=== PATIENT | male | born 1990 | race Two or more races ===

== ENCOUNTER 2024-11-16 10:55 | Outpatient (AMB) | payer BC, SELFPAY ==
--- OUTSIDE RECORDS SUMMARY | 2012-07-03 04:15 | XMS_ITS | Continuity of Care Document ---
Author Organization [facility] Address [address] [place] [phone] Phone Care Team Providers Care Wildlife Veterinarian Name Role Phone Nursing CHC, Services Unavailable [...] Diagnoses Date Provider Providers Copied on Encounter [facility] , [address] [place] [address], [id number], [place] tel:[phone] [facility] PPD reading (chief complaint) No Information 3-201 3 Nursing Services. [address] [place] [address], [address]. tel:[phone] OFFICE/OUTPAT IENT VISIT, EST [facility] , [address] [place] [address], [id number], [place] tel:[phone] [facility] PPD test (chief complaint) PPD screening test 0-201 3 No Information [facility] , [address] [place] [address], [id number], [place] tel:[phone] [facility] PPD reading (chief complaint) No Information 9-201 2 Nursing Services. [address] [place] [address], [address]. tel:[phone] [facility] , [address] [facility], [place], [place], [id number], [place] tel:[phone] [facility] PPD test (chief complaint) Tuberculosis screening 2 No Information Family History Family Member Type Diagnosis Age At Onset No Information Payers Payer name Insurance type Covered democrat ID Authoriza tion(s) No Information Social History [...]
--- NOTE | 2024-11-16 10:58 | A.OFFPC_ITS ---
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 Senior Report Developer Required: No Accompanied by: Self / Same As Patient Allergies No Known Allergies Allergy (Verified 11/16/24 10:59) Tobacco use date assessed: 11/16/24 Dental Screening Dental Screen Date: 11/16/24 Did you have a dental visit in the last 12 months?: Yes Did you have a dental problem in the last 6 months where you did not have access to dental care?: No Was dental information given to patient?: Patient has dentist HPI HPI Comments History of Present Illness Details History of Present Illness The patient is a 34-year-old male presenting with musculoskeletal pain. Musculoskeletal pain: - The pain started approximately one wee k ago and is described as sharp and stabbing, rated 8/10 in severity. - The patient works in [employer], which may contribute to the musculoskeletal nature of the pain. - The pain is not reproducible upon palp ation and has decreased in intensity recently. Elevated blood pressure: - Blood pressure was noted to be elevate d during the visit, likely due to nervousness. Substance use screening: - Screening for substance use was discus sed, including tests for hepatitis B, hepatitis C, HIV, chlamydia, gonorrhea, and syphilis. Health Maintenance - Screening for hepatitis B, hepatitis C , HIV, chlamydia, gonorrhea, and syphilis was discussed. Review of Systems - Musculoskeletal: Reports sharp, stabbi ng pain in the rib area for one week. - Cardiovascular: Denies chest pain, ort hopnea, or syncope. - Gastrointestinal: Denies diarrhea, con stipation, heartburn, or blood in stool. 10-point ROS reviewed and negative excep t as noted in HPI Current Substance Use - Cannabis: Reports smoking cannabis aye ly since age 16, approximately 3-5 times per day. Substance Use History - Cannabis: Long-term use since age 16, currently smoking 3-5 times daily. 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 - Family: In a long-term relationship, s oon to be , with five children. Physical Exam General: No apparent distress. Alert and oriented x 3. Head:Normocephalic, atraumatic Eyes: Pupils equal, round, and reactive to light.Extraocular movements intact Throat: 0ropharynx clear. Mucus membranes moist Neck: Supple. No lymphadenopathy. left anterior descending artery distention. No jugular vein distention. No bruit. Cardiovascular: Regular rate and rhythm. Normal S1 and S2. No murmurs.murmurs, rubs, or gallops Lungs: Clear to auscultation bilaterally. Breath sounds equal bilaterally. No rales, ronchi, or wheezes. Abdomen: Non-tender. Non-distended. Bowel sounds auscultated. Lower left quadrant pain noted. Ultrasound abdomen ordered.hepatosplenomegaly. No mass/rebound/guarding Extremities: No cyanosis, clubbing, or edema. clubbing, cyanosis, and edema. 2+ pulses Neuro: Central nerves II-XII grossly intact. Motor/sensory intact. Reflexes 2+. Gait normal. Skin: Warm, dry, and intact. No rash. Discussion Notes During the visit, I discussed the patient's musculoskeletal pain and the potential musculoskeletal nature of the pain due to his occupation. I recommended an abdominal ultrasound to further investigate the pain and prescribed Motrin 600 mg for pain management. We also discussed the importance of baseline labs, including a complete blood count, comprehensive metabolic panel, and lipid panel. I advised the patient to follow up for lab results and further evaluation. Plan 1. Musculoskeletal Pain - Plan includes ordering an abdominal ul trasound to investigate the pain and prescribing Motrin 600 mg for pain relief. 2. Elevated blood-pressure reading, with out diagnosis of hypertension R03.0 - Blood pressure was noted to be elevate d, likely due to nervousness. No spec [facility] treatment was initiated during this visit. 3. Encounter for screening for other dis order Z13.89 - Screening for hepatitis B, hepatitis C , HIV, chlamydia, gonorrhea, and syphilis was discussed and planned. 4. abdominal pain ultrasound abdomen Ibuprofen 600 for pain Restrain from doing heavy lifting Patient Instructions - Take Motrin 600 mg every 8 hours with food to manage pain. - Follow up for lab results and further evaluation. - Attend scheduled screenings for hepati tis B, hepatitis C, HIV, chlamydia, gonorrhea, and syphilis. [facility] Family History (Updated 11/16/24 @ 11:05 by Martinez James MA) Father No problems noted. Mother No problems noted. Social History (Updated 11/16/24 @ 11:06 by Martinez James MA) Housing: House Alcohol intake: current Alcohol intake frequency: does not drink Patient Tobacco Use Status: Never used Tobacco Substance Use Type: Marijuana service: No Current occupational status: employed Cognitive needs: No Hearing needs: No Vision needs: No Questionnaire PHQ-9 Over the last 2 weeks, how often have you been bothered by any of the following problems? 1. Little interest or pleasure in doing things: not at all 2. Feeling down, depressed, or hopeless: not at all 3. Trouble falling or staying asleep, or sleeping too much: not at all 4. Feeling tired or having little energy: not at all 5. Poor appetite or overeating: not at all 6. Feeling bad about yourself - or that you are a failure or have let yourself or your family down: not at all 7. Trouble concentrating on things, such as reading the newspaper or watching television: not at all 8. Moving or speaking so slowly that other people could have noticed. Or the opposite - being so fidgety or restless that you have been moving around a lot more than usual: not at all 9. Thoughts that you would be better off or of hurting yourself in some way: not at all Total score: 0 Source: Developed by Drs. Juan Arevalo, Yeni Laws, Micah Mendoza and colleagues, with an educational richard from [employer]. Thrive Questionnaire I am a: Patient What is your living situation today?: I have a steady place to live Within the past 12 months, did the food you bought not last and you didn't have the money to get more?: Often true Within the past 12 months, did you worry whether your food would run out before you got money to buy more?: I choose not to answer this question Do you have trouble paying for medicines?: No Do you have trouble getting transportation to medical appointments?: No Do you have trouble paying your heating and electricity bill?: No Do you have trouble taking care of your child, family member or friend?: No Are you currently unemployed and looking for a job?: No Are you interested in more education?: No Please select the resources that you would like help with: None Currently or been in a relationship where the following occur: I choose not to answer THRIVE Score: 1 AUDIT C Alcohol Use Questionnaire (AUDIT-C) 1. How often do you have a drink containing alcohol?: 2-4 times a month 2. How many drinks containing alcohol do you have on a typical day when you are drinking?: 3 or 4 3. How often do you have six or more drinks on one occasion?: Less than monthly Total Score: 4 MAKAYLA-7 AMB Questionnaire MAKAYLA-7 Feeling nervous, anxious, or on edge: 0 = Not at all Not being able to stop or control worryin = Not at all Worrying too much about different things: 0 = Not at all Trouble relaxin = Not at all Being so restless that it is hard to sit still: 0 = Not at all Becoming easily annoyed or irritable: 0 = Not at all Feeling afraid as if something awful might happen: 0 = Not at all Total MAKAYLA-7 score (0-4 normal; 5-9 mild; 10-14 moderate; 15-21 severe): 0 Source: Developed by Drs. Juan Arevalo, Yeni Laws, Micah Mendoza and colleagues, with an educational richard from [employer]. Physical exam (Primary Care) Vital Signs: Last Vital Signs Temp 98.7 F 11/16/24 11:06 Pulse 105 H 11/16/24 11:06 Resp 16 11/16/24 11:06 BP 140/70 H 11/16/24 11:06 Pulse Ox 100 11/16/24 11:06 Oxygen Delivery Method Room Air 11/16/24 11:06 BMI result Body Mass Index 23.1 Tobacco/Smoking Status: Tobacco use Status Tobacco use date assessed 11/16/24 11/16/24 11:02 Patient Tobacco Use Status Never used Tobacco 11/16/24 11:06 PHQ-9: PHQ-9 Score PHQ-9: Total score 0 11/16/24 11:02 Currently or been in a relationship where the following occur: I choose not to answer Coding Level of Care Code New Pt Level 3 (41396) Diagnoses Establishing care with new doctor, encounter for Z76.89 Encounter for screening, unspecified Z13.9 Routine lab draw Z01.89 Counseling, unspecified Z71.9 Elevated blood pressure reading R03.0 Tachycardia R00.0 Screening for diabetes mellitus Z13.1 Screening for lipoid disorders Z13.220 Screening for depression Z13.31 Screening for HIV (human immunodeficiency virus) Z11.4 Left lower quadrant abdominal pain R10.32 Abdominal location: left lower quadrant Assessment & Plan Assessment & Plan (1) Establishing care with new doctor, encounter for: Code(s): Z76.89 - Persons encountering health services in other specified circumstances (2) Encounter for screening, unspecified: Code(s): Z13.9 - Encounter for screening, unspecified (3) Routine lab draw: Code(s): Z01.89 - Encounter for other specified special examinations (4) Counseling, unspecified: Code(s): Z71.9 - Counseling, unspecified (5) Elevated blood pressure reading: Code(s): R03.0 - Elevated blood-pressure reading, without diagnosis of hypertension (6) Tachycardia: Code(s): R00.0 - Tachycardia, unspecified (7) Screening for diabetes mellitus: Code(s): Z13.1 - Encounter for screening for diabetes mellitus (8) Screening for lipoid disorders: Code(s): Z13.220 - Encounter for screening for lipoid disorders (9) Screening for depression: Code(s): Z13.31 - Encounter for screening for depression (10) Screening for HIV (human immunodeficiency virus): Code(s): Z11.4 - Encounter for screening for human immunodeficiency virus [HIV] (11) Abdominal pain: Code(s): R10.9 - Unspecified abdominal pain Qualifiers: Abdominal location: left lower quadrant Qualified Code(s): R10.32 - Left lower quadrant pain Plan Orders: Orders Lipid Panel Today Z13.9 - Encounter for screening, unspecified, Z76.89 - Persons encountering health services in other specified circumstances Magnesium Today Z13.9 - Encounter for screening, unspecified, Z76.89 - Persons encountering health services in other specified circumstances TSH reflex Free T4 Today Z13.9 - Encounter for screening, unspecified, Z76.89 - Persons encountering health services in other specified circumstances UA CC w/rflx Micro + Cult Today Z13.9 - Encounter for screening, unspecified, Z76.89 - Persons encountering health services in other specified circumstances Vitamin D 1,25 dihydroxy Today Z13.9 - Encounter for screening, unspecified, Z76.89 - Persons encountering health services in other specified circumstances Chlamydia Species Ab Panel Today Z13.9 - Encounter for screening, unspecified, Z76.89 - Persons encountering health services in other specified circumstances CT NG by PCR Urine Today Z13.9 - Encounter for screening, unspecified, Z76.89 - Persons encountering health services in other specified circumstances US abdomen complete Today R10.9 - Unspecified abdominal pain Complete Blood Count Auto Diff Today Z13.9 - Encounter for screening, unspecified, Z76.89 - Persons encountering health services in other specified circumstances Comprehensive Met. Panel Today Z13.9 - Encounter for screening, unspecified, Z76.89 - Persons encountering health services in other specified circumstances Hemoglobin A1c Today Z13.9 - Encounter for screening, unspecified, Z76.89 - Persons encountering health services in other specified circumstances Hepatitis B Surface Antibody Today Z13.9 - Encounter for screening, unspecified, Z76.89 - Persons encountering health services in other specified circumstances Hepatitis B Surface Antigen Today Z13.9 - Encounter for screening, unspecified, Z76.89 - Persons encountering health services in other specified circumstances Hepatitis C Antibody Today Z13.9 - Encounter for screening, unspecified, Z76.89 - Persons encountering health services in other specified circumstances HIV Ab/Ag Today Z13.9 - Encounter for screening, unspecified, Z76.89 - Persons encountering health services in other specified circumstances Syphilis Screen Today Z13.9 - Encounter for screening, unspecified, Z76.89 - Persons encountering health services in other specified circumstances Medications: New ibuprofen 600 mg PO Q8H PRN 30 tabs 0RF pain
[2024-11-16 11:06] VITALS: BP 140/70; PULSE 105; RESP 16; TEMP 37.1; O2SAT 100; BMI 23.1
--- OUTSIDE RECORDS SUMMARY | 2024-11-16 14:41 | XMS_ITS | Clinical Summary ---
Author Organization [facility] Address [address] [place] [id number] Phone Care Team Providers Care Special Agent Fbi Name Role Phone Ira Bowens NP Primary Care Provider [phone] Allergies No known active allergies Medications diclofenac sodium (VOLTAREN) 50 MG EC tablet Take 50 mg by mouth. 07/12/2021 Active Active Problems No known active problems Social History Tobacco Use Types Packs/Day Years Used Date Smoking Tobacco: Never Assessed Education Answer Date Recorded Are you interested in more education? Not on riaz e 06/29/2022 Are you concerned about learning? Not on file 06/29/2022 No 06/29/2022 No 06/29/2022 Digital Access Answer Date Recorded No 07/28/2022 No 07/28/2022 Reliable internet access at home? Not on file 07/28/2022 Device with a working camera? Not on file Sex and Gender Information Value Date Recorded Sex Assigned at Not on file Legal Sex Male 9:07 AM EDT Gender Identity Not on file Sexual Orientation Not on file Last Filed Vital Signs Vital Sign Reading Time Taken Comments Blood Pressure - - Pulse - - Temperature - - Respiratory Rate - - Oxygen Saturation - - Inhaled Oxygen Concentration - - Weight 74.8 kg (165 lb) 01/02/2022 8:17 AM EDT Height 182.9 cm (6') 01/02/2022 8:17 AM EDT Body Mass Index 22.38 01/02/2022 8:17 AM EDT Plan of Treatment Health Maintenance Due Date Last Done Comments Adult Td,Tdap Booster 1988 LIPID PANEL 1988 DEPRESSION SCREENING 2000 SMOKING Hx and SMOKELESS TOB ACCO SCREENING 2001 HEPATITIS C SCREENING 2006 HIV ONE-TIME SCREENING (18-6 5 YEARS) 2006 INFLUENZA VACCINE (#1) 2024 COVID-19 VACCINE (1 - 2023-2 5 season) 2024 HEPATITIS A VACCINES Aged Out No long er eligible based on patient's age to complete this topic HIB VACCINES Aged Out No longer eligi ble based on patient's age to complete this topic MENINGOCOCCAL VACCINES (ACWY) Aged Out No longer eligible based on patient's age to complete this topic MENINGOCOCCAL VACCINES (B) Aged Out N o longer eligible based on patient's age to complete this topic PNEUMOCOCCAL VACCINES (0-49 years) Aged Out No longer eligible based on patient's age to complete this topic Medical Devices Not on file Insurance OUT [facility] PPO PPO BLUE CROSS OUT OF STATE PPO BLUE CROSS OUT OF STATE PPO BLUE CROSS OUT OF STATE PPO BLUE CROSS OUT OF STATE PPO BLUE CROSS OUT OF STATE PPO BLUE CROSS OUT OF STATE PPO BLUE CROSS OUT OF STATE PPO Care Teams Special Agent Fbi Relationship Specialty Start Date End Date Ira Bowens NP [address] [address] PCP - General Family Medicine 10/31/21 Additional Source Comments The information contained in this document represents components of the legal health record. It is not the complete legal health record.[facility]
== END 2024-11-16 11:48 | disposition home or self-care (01) ==
LOC: HO.HMCFMS 10:56
PROVIDERS: Visit Provider Student in an Organized Health Care Education/Training Program
DX: R03.0 Elevated blood-pressure reading, without diagnosis of hypertension (principal); R00.0 Tachycardia, unspecified; R10.32 Left lower quadrant pain

== ENCOUNTER 2024-11-17 09:17 | Outpatient (REF) | payer BC, SELFPAY ==
--- OUTSIDE RECORDS SUMMARY | 2012-07-03 04:15 | XMS_ITS | Continuity of Care Document ---
Author Organization [facility] Address [address] [place] [id number] Phone Care Team Providers Care Well Servicing Rig Operator Name Role Phone Nursing CHC, Services Unavailable Unavailabl e Allergies, Adverse Reactions, Alerts Substance Reaction Status Criticality No Known allergies Procedures Procedure Date PPD Reading OFFICE/OUTPATIENT VISIT, EST TB INTRADERMAL TEST TB INTRADERMAL TEST PPD Reading TB INTRADERMAL TEST TB INTRADERMAL TEST Advance Directives Directive Yes / No Effective Date File Name No Information Encounters Encounter Description Practice Location Reason(s) For Visit Diagnoses Date Provider Providers Copied on Encounter [facility] , [address] [place] [address], [id number], [place] tel:[phone] [facility] PPD reading (chief complaint) No Information 3-201 3 Nursing Services. [address] [place] [address], [address]. tel:[phone] OFFICE/OUTPAT IENT VISIT, EST [facility] , [address] [place] [address], [id number], [place] tel:[phone] [facility] PPD test (chief complaint) PPD screening test 0-201 3 No Information [facility] , [address] [place] [address], [id number], [place] tel:[phone] [facility] PPD reading (chief complaint) No Information 9-201 2 Nursing Services. [address] [place] [address], [address]. tel:[phone] [facility] , [address] [facility], [place], [place], [id number], [place] tel:[phone] [facility] PPD test (chief complaint) Tuberculosis screening 2 No Information Family History Family Member Type Diagnosis Age At Onset No Information Payers Payer name Insurance type Covered republican ID Authoriza tion(s) No Information Social History Type Description Quantity Date Captured Comments Sex Male Smoking Status No Information Chief Complaint And Reason For Visit From encounter dated '07/03/2012 08:15'. PPD reading (chief complaint) Reason For Referral Reason For Referral No Information History Of Present Illness Encounter Date Complaint History Of Prese nt Illness No Information Functional Status Date Functional Assessmen t No Information Instructions Date Instruction Additional Infor mation No Information Assessments Type Assessment Date No Information Patient Care Teams Name Effective Dates (start - stop) Status Members No Information
--- NOTE | ~2024-11-17 | US_ITS ---
EXAMINATION: US ABDOMEN COMPLETE CLINICAL INFORMATION: R10.9. Unspecified abdominal pain.. COMPARISON: None available. TECHNIQUE: Real-time ultrasound of the abdomen using grayscale technique. FINDINGS: PANCREAS: No peripancreatic fluid collections. No gross main pancreatic ductal dilatation. ABDOMINAL AORTA: The proximal, mid, and distal segments are normal in caliber. INFERIOR VENA CAVA: Visualized portions are normal. LIVER: Liver measures 17 cm. Subtle nodular surface. Normal echotexture. No solid or cystic lesion detected. Main portal vein is patent with normal hepatopedal flow direction. No intrahepatic biliary ductal dilatation. GALLBLADDER: Fluid-filled nondistended. No pericholecystic fluid collection or gallbladder wall thickening. COMMON BILE DUCT: 5 mm. RIGHT KIDNEY: 11 cm. Normal echotexture. Normal renal cortical thickness. No hydronephrosis. No gross solid or cystic lesion. . LEFT KIDNEY: 12 cm. Normal echotexture. Normal renal cortical thickness. No hydronephrosis. No gross solid or cystic lesion. SPLEEN: 8 cm. No focal lesion.. FREE FLUID: None. US/US abdomen complete IMPRESSION: No cholelithiasis or choledocholithiasis. Hepatomegaly, mild. No hydronephrosis. No ascites. Normal spleen.. Electronically signed by: Suresh Hackett MD 11/17/2024 10:26 AM EDT
--- OUTSIDE RECORDS SUMMARY | 2024-11-17 10:56 | XMS_ITS | Clinical Summary ---
Author Organization [facility] Address [email or web address] [place] [id number] Phone Care Team Providers Care Vocational Examiner Name Role Phone Ira Bowens NP Primary Care Provider [phone] Allergies No known active allergies Medications diclofenac [...] Medical Devices Not on file Insurance OUT [facility] PPO PPO BLUE CROSS OUT OF STATE PPO BLUE CROSS OUT OF STATE PPO BLUE CROSS OUT OF STATE PPO BLUE CROSS OUT OF STATE PPO BLUE CROSS OUT OF STATE PPO BLUE CROSS OUT OF STATE PPO BLUE CROSS OUT OF STATE PPO Care Teams Vocational Examiner Relationship Specialty Start Date End Date Ira Bowens NP [address] [address] PCP - General Family Medicine 10/31/21 Additional Source Comments The information contained in this document represents components of the legal health record. It is not the complete legal health record.[facility]
== END 2024-11-17 09:18 | disposition home or self-care (01) ==
LOC: HO.US 09:17
PROVIDERS: PCP Student in an Organized Health Care Education/Training Program; Visit Provider Student in an Organized Health Care Education/Training Program
DX: R10.9 Unspecified abdominal pain (principal)
CPT/HCPCS: 76700

== ENCOUNTER → 2024-11-17 09:25 | Outpatient (BNV) | payer BC, SELFPAY | PROVIDERS: PCP Student in an Organized Health Care Education/Training Program; Visit Provider Radiology Diagnostic Radiology | DX: R16.0 Hepatomegaly, not elsewhere classified (principal) | CPT/HCPCS: 76700 ==

== ENCOUNTER 2024-11-25 08:42 | Outpatient (REF) | payer BC, SELFPAY ==
--- OUTSIDE RECORDS SUMMARY | 2024-11-25 10:30 | XMS_ITS | Clinical Summary ---
Author Organization [facility] Address [address] [place] [address] Care Team Providers Care Mason Apprentice Name Role Phone Ira Bowens NP Primary Care Provider Unavailab le Allergies No known active allergies Medications Medication Sig Dispensed Refills Start Date End Date Status diclofenac (VOLTAREN) 50 MG EC tablet Take 1 Tablet by mouth 2 times daily for 30 days. 60 Tablet 1 07/12/2021 Active Active Problems No known active problems Social History Tobacco Use Types Packs/Day Years Used Date Smoking Tobacco: Never Smokeless Tobacco: Never Alcohol Use Standard Drinks/Week Comments Yes 0 (1 standard drink = 0.6 oz pur e alcohol) Sex Assigned at Date Recorded Not on file Job Start Date Occupation Industry Not on file Not on file Not on file Last Filed Vital Signs Vital Sign Reading Time Taken Comments Blood Pressure 90/60 07/12/2021 10:54 AM EDT Pulse 66 07/12/2021 10:54 AM EDT Temperature - - Respiratory Rate 12 07/12/2021 10:54 AM EDT Oxygen Saturation - - Inhaled Oxygen Concentration - - Weight 76.7 kg (169 lb) 07/12/2021 10:54 AM EDT Height 182.9 cm (6') 07/12/2021 10:54 AM EDT Body Mass Index 22.92 07/12/2021 10:54 AM EDT Plan of Treatment Health Maintenance Due Date Last Done Comments Covid-19 Vaccine (#1) 02/18/1989 BASELINE HEALTH EXAM 18-39 08/20/2007 DTAP/TDAP/TD (1 - Tdap) 08/20/2007 CHOLESTEROL SCREENING 2008 INFLUENZA (#1) 2024 PNEUMOCOCCAL VACCINE FOR HIGH RISK PATIENTS (#1) 08/19 Care Teams Mason Apprentice Relationship Specialty Start Date End Date Ira Bowens NP PCP - General Nurse Practioner Adult Health 06/27/21
[2024-11-25 13:16] LABS: MANUAL DIFF FLAG NO
[2024-11-25 13:17] LABS: Hematocrit 40.7 % (42.0-52.0); Hemoglobin 14.3 g/dl (14.0-18.0); Imm Gran Abs Auto 0.01 X10*3/uL (0.00-0.03); Imm Gran Pct Auto 0.2 % (0.0-0.4); Lymphocytes Absolute Auto 1.5 X10*3/uL (1.2-4.9); Mean Corpuscular HGB Conc 35.1 g/dl (31.0-36.0); Mean Corpuscular Hemoglobin 33.3 pg (27.0-33.0); Mean Corpuscular Volume 94.7 fL (80.0-98.0); NRBC Abs Auto 0.000 X10*3/uL (0.0-0.012); NRBC Pct Auto 0.0 /100WBC (0.0-0.2); Platelet Count 266 X10*3/uL (160-400); Red Blood Count 4.30 X10*6/uL (4.60-5.80); White Blood Count 6.5 X10*3/uL (4.8-10.8)
[2024-11-25 13:25] LABS: Appearance Urine Clear; Glucose Urine UA Negative (Negative); PH >= 9.0 (5.0-9.0); Specific Gravity - Urine 1.015 (1.005-1.025); UMIC TRIGGER UACC YES
[2024-11-25 13:34] LABS: Total Hemoglobin (HGBA1C) 3649.0995 umol/L
[2024-11-25 14:14] LABS: Alanine Aminotransferase 23 U/L (0-40); Albumin Level 5.0 g/dL (3.5-5.0); Alkaline Phosphatase 79 U/L (39-117); Anion Gap 12 (12-20); Aspartate Amino Transferase 29 U/L (5-37); Blood Urea Nitrogen 11 mg/dL (9-16); Calcium 9.6 mg/dL (8.4-10.2); Carbon Dioxide 28 mmol/L (22-29); Chloride 104 mmol/L (96-108); Cholesterol 281 mg/dL (<200); Estimated Glomerular Filt Rate > 60; HDL Cholesterol 43 mg/dL (>40); Magnesium 2.0 mg/dL (1.6-2.6); Potassium 4.3 mmol/L (3.3-5.1); Sodium 140 mmol/L (135-145); Total Protein 8.1 g/dL (6.5-8.0); Triglycerides 164 mg/dL (<150)
[2024-11-25 15:07] LABS: CT PCR Urine NOT DETECTED (Not Detect.); NG PCR Urine NOT DETECTED (Not Detect.)
[2024-11-26 08:12] LABS: Syphilis Screen Nonreactive (Nonreactive)
[2024-11-26 09:04] LABS: HBS Num1 > 1000.00 mIU/mL (0-7.99); HBsAGNum1 0.31 S/CO (0.00-0.99); HIV Num 1 0.05 S/CO (0.00-0.99); Hepatitis B Surface Antigen Negative (Negative); ~HepC Num1 0.21 S/CO (0.00-0.79); ~Hepatitis B Surface Antibody REACTIVE (Nonreactive); ~Hepatitis C Antibody Nonreactive (Nonreactive)
[2024-11-29 19:59] LABS: VITAMIN D (1,25 OH) D3 51 pg/mL; Vit D (1,25-Dihydroxy) Total 51 pg/mL (18-72); Vitamin D (1,25 OH) D2 <8 pg/mL
[2024-11-30 22:59] LABS: Chlamydia Trachomatis IgA <1:16 titer (<1:16)
== END 2024-11-25 08:43 | disposition home or self-care (01) ==
LOC: HO.HKASLDS 08:42
PROVIDERS: Visit Provider Student in an Organized Health Care Education/Training Program
DX: Z71.2 Person consulting for explanation of examination or test findings (principal); R16.0 Hepatomegaly, not elsewhere classified; Z76.89 Persons encountering health services in other specified circumstances; Z13.9 Encounter for screening, unspecified
CPT/HCPCS: 80053; 80061; 81001; 82652; 83036; 83735; 84443; 85025; 86631; 86632; 86706; 86780; 86803; 87340; 87389; 87491; 87591

== ENCOUNTER 2024-11-25 08:42 | Outpatient (AMB) | payer BC, SELFPAY ==
--- OUTSIDE RECORDS SUMMARY | 2012-07-03 04:15 | XMS_ITS | Continuity of Care Document ---
Author Organization [facility] Address [address] [place] [phone] Phone Care Team Providers Care Sales Effectiveness Manager Name Role Phone Nursing CHC, Services Unavailable [...] Diagnoses Date Provider Providers Copied on Encounter [facility] , [address] [place] [address], [id number], [place] tel:[phone] [facility] PPD reading (chief complaint) No Information 3-201 3 Nursing Services. [address] [place] [address], [address]. tel:[phone] OFFICE/OUTPAT IENT VISIT, EST [facility] , [address] [place] [address], [id number], [place] tel:[phone] [facility] PPD test (chief complaint) PPD screening test 0-201 3 No Information [facility] , [address] [place] [address], [id number], [place] tel:[phone] [facility] PPD reading (chief complaint) No Information 9-201 2 Nursing Services. [address] [place] [address], [address]. tel:[phone] [facility] , [address] [facility], [place], [place], [id number], [place] tel:[phone] [facility] PPD test (chief complaint) Tuberculosis screening 2 No Information Family History Family Member Type Diagnosis Age At Onset No Information Payers Payer name Insurance type Covered alliance party ID Authoriza tion(s) No Information Social History [...]
--- NOTE | 2024-11-25 08:57 | A.OFFPC_ITS ---
Vital Signs 11/25/24 09:00 Height 6 ft 0.44 in Weight 173 lb 8 oz BMI 23.2 BP 123/67 Blood Pressure Location Rt brachial Position Sitting Respiration 16 Pulse 65 Pulse Source Pulse Oximeter Temp 98.4 F Temp Source Oral Pulse Oximetry (%) 99 Oxygen Delivery Method Room Air Intake Visit Reasons: follow up labs and ultrasound Bundle Breaker Required: No Accompanied by: Self / Same As Patient Allergies No Known Allergies Allergy (Verified 11/25/24 08:58) Tobacco use date assessed: 11/16/24 Dental Screening Dental Screen Date: 11/16/24 Did you have a dental visit in the last 12 months?: Yes Did you have a dental problem in the last 6 months where you did not have access to dental care?: No Was dental information given to patient?: Patient has dentist HPI HPI Comments History of Present Illness Details History of Present Illness The patient is a 34-year-old male presenting for a follow-up visit and evaluation of ultrasound results. Mild Hepatomegaly: - The patient underwent an ultrasound wh ich revealed mild hepatomegaly. - The patient reports experiencing inter mittent left-sided abdominal pain, which has not improved. - The pain is not associated with meals and occurs sporadically. - The ultrasound findings were otherwise normal, and further evaluation with laboratory tests is planned to assess liver function and other potential causes. Review of Systems - Gastrointestinal: Reports intermittent left-sided abdominal pain. Denies association with meals. 10-point ROS reviewed and negative excep t as noted in HPI Past Medical History Health Maintenance Physical Exam General: Well-appearing, in no acute distress. Vital signs: Within normal limits. HEENT: Normocephalic, atraumatic. PERRLA, EOMI. Conjunctiva clear, sclera anicteric. Oropharynx clear, mucous membranes moist. TMs intact bilaterally. Neck: Supple, no lymphadenopathy, no thyromegaly, no JVD or carotid bruits. Cardiovascular: RRR, normal S1/S2, no murmurs, rubs, or gallops. Peripheral pulses 2+ and symmetric. No edema. Respiratory: Lungs clear to auscultation bilaterally, no wheezes, rales, or rhonchi. Normal effort. Abdomen: Soft, non-tender, non-distended. Normoactive bowel sounds. No hepatosplenomegaly, no masses. Mild hepatomegaly noted. MSK: Full range of motion, no joint swelling or deformity. Normal gait. Skin: Warm, dry, intact. No rashes, lesions, or pallor. Neuro: Alert and oriented x3. Cranial nerves II-XII intact. Strength 5/5 throughout. Sensation intact. Reflexes 2+ symmetric. Normal coordination and gait. Psych: Appropriate mood and affect. Normal judgment and insight. Plan 1. Mild Hepatomegaly - Plan to obtain laboratory tests to juan miguel luate liver function and identify potential causes of hepatomegaly. - Consideration for referral to a specia list if laboratory results indicate further investigation is needed. Discussion Notes I discussed with the patient that the ultrasound showed mild hepatomegaly, which requires further evaluation with laboratory tests to assess liver function. I explained that depending on the lab results, a referral to a specialist might be necessary for further investigation. Patient was informed and verbally consented to the use of an ambient scribe for clinic note documentation during this visit. Patient Instructions - Schedule and complete the recommended blood tests as soon as possible. - Follow up with the clinic next week to discuss the results and next steps. [facility]LY [facility] Medical History (Updated 11/25/24 @ 09:13 by Geoffrey Avery MD) Hepatomegaly Family History (Updated 11/16/24 @ 11:05 by Martinez James MA) Father No problems noted. Mother No problems noted. Social History (Updated 11/16/24 @ 11:06 by Martinez James MA) Housing: House Alcohol intake: current Alcohol intake frequency: does not drink Patient Tobacco Use Status: Never used Tobacco Substance Use Type: Marijuana service: No Current occupational status: employed Cognitive needs: No Hearing needs: No Vision needs: No Questionnaire Thrive Questionnaire Date Thrive assessed: 11/16/24 I am a: Patient What is your living situation today?: I have a steady place to live Within the past 12 months, did the food you bought not last and you didn't have the money to get more?: Often true Within the past 12 months, did you worry whether your food would run out before you got money to buy more?: I choose not to answer this question Do you have trouble paying for medicines?: No Do you have trouble getting transportation to medical appointments?: No Do you have trouble paying your heating and electricity bill?: No Do you have trouble taking care of your child, family member or friend?: No Are you currently unemployed and looking for a job?: No Are you interested in more education?: No Please select the resources that you would like help with: None Currently or been in a relationship where the following occur: I choose not to answer THRIVE Score: 1 Physical exam (Primary Care) Vital Signs: Last Vital Signs Resp 16 11/25/24 09:00 BMI result Body Mass Index 23.2 Tobacco/Smoking Status: Tobacco use Status Tobacco use date assessed 11/16/24 11/25/24 08:59 Patient Tobacco Use Status Never used Tobacco 11/25/24 08:59 Thrive Assessment: Date of Thrive Assessment Date Thrive assessed 11/16/24 11/25/24 08:59 Currently or been in a relationship where the following occur: I choose not to answer Coding Level of Care Code Way[place] Pt Level 3 (26540) Diagnoses Encounter to discuss test results Z71.2 Hepatomegaly R16.0 Assessment & Plan Assessment & Plan (1) Encounter to discuss test results: Code(s): Z71.2 - Person consulting for explanation of examination or test findings (2) Hepatomegaly: Code(s): R16.0 - Hepatomegaly, not elsewhere classified Category: Medical Plan
[2024-11-25 09:00] VITALS: BP 123/67; PULSE 65; RESP 16; TEMP 36.9; O2SAT 99; BMI 23.2
--- OUTSIDE RECORDS SUMMARY | 2024-11-25 09:16 | XMS_ITS | Clinical Summary ---
Author Organization [facility] Address [address] [place] [id number] Phone Care Team Providers Care Scoop Driver Name Role Phone Ira Bowens NP Primary Care Provider [phone] Allergies No known active allergies Medications diclofenac [...] Medical Devices Not on file Insurance OUT [facility] PPO PPO BLUE CROSS OUT OF STATE PPO BLUE CROSS OUT OF STATE PPO BLUE CROSS OUT OF STATE PPO BLUE CROSS OUT OF STATE PPO BLUE CROSS OUT OF STATE PPO BLUE CROSS OUT OF STATE PPO BLUE CROSS OUT OF STATE PPO Care Teams Scoop Driver Relationship Specialty Start Date End Date Ira Bowens NP [address] [address] PCP - General Family Medicine 10/31/21 Additional Source Comments The information contained in this document represents components of the legal health record. It is not the complete legal health record.[facility]
== END 2024-11-25 09:14 | disposition home or self-care (01) ==
LOC: HO.HMCFMS 08:43
PROVIDERS: Visit Provider Student in an Organized Health Care Education/Training Program
DX: R16.0 Hepatomegaly, not elsewhere classified (principal)

== ENCOUNTER 2024-12-15 09:41 | Outpatient (AMB) | payer BC, SELFPAY ==
[2024-12-15 09:44] VITALS: BP 128/72; PULSE 70; RESP 16; TEMP 36.8; O2SAT 99; BMI 23.2
--- NOTE | 2024-12-15 09:44 | MHC.PC.OV ---
Vital Signs 12/15/24 09:44 Height 6 ft 0.44 in Weight 173 lb 6 oz BMI 23.2 BP 128/72 Blood Pressure Location Rt brachial Position Sitting Respiration 16 Pulse 70 Pulse Source Pulse Oximeter Temp 98.2 F Temp Source Oral Pulse Oximetry (%) 99 Oxygen Delivery Method Room Air Intake Visit Reasons: 1 wk f/u r/s'd from 12/10/24 Health And Safety Tech Required: No Accompanied by: Self / Same As Patient Allergies No Known Allergies Allergy (Verified 12/15/24 09:44) Tobacco use date assessed: 11/16/24 Dental Screening Dental Screen Date: 11/16/24 Did you have a dental visit in the last 12 months?: Yes Did you have a dental problem in the last 6 months where you did not have access to dental care?: No Was dental information given to patient?: Patient has dentist HPI HPI Comments History of Present Illness Details Consent Patient was informed and verbally consented to the use of an ambient scribe for clinic note documentation during this visit. History of Present Illness The patient is a 34-year-old male presenting with a routine wellness examination and laboratory review. Mild hepatomegaly: - The patient has mild hepatomegaly, which was identified during an abdominal ultrasound. - Liver enzymes are normal, and hepatitis B and C are negative. - we will monitor for now repeat ultrasound in 6 months Hyperlipidemia: - The patient has elevated cholesterol levels with a total cholesterol of 281 mg/dL and LDL cholesterol of 206 mg/dL. - Triglycerides are also elevated at 164 mg/dL. - Lifestyle factors such as high intake of cheese and soda are contributing to these levels. Microscopic hematuria: - Microscopic hematuria was noted in the urine analysis. - will monitor for now repeat in 6 months Review of Systems 10-point ROS reviewed and negative except as noted in HPI Past Medical History Health Maintenance - Discussed dietary modifications to reduce cholesterol and triglycerides, including reducing cheese and soda intake. - Referral to a registered vascular technologist (rvt) for nutritional counseling. Physical Exam General: Well-appearing, in no acute distress. Vital signs: Within normal limits. HEENT: Normocephalic, atraumatic. PERRLA, EOMI. Conjunctiva clear, sclera anicteric. Oropharynx clear, mucous membranes moist. TMs intact bilaterally. Neck: Supple, no lymphadenopathy, no thyromegaly, no JVD or carotid bruits. Cardiovascular: RRR, normal S1/S2, no murmurs, rubs, or gallops. Peripheral pulses 2+ and symmetric. No edema. Respiratory: Lungs clear to auscultation bilaterally, no wheezes, rales, or rhonchi. Normal effort. Abdomen: Soft, non-tender, non-distended. Normoactive bowel sounds. Mild hepatomegaly noted. No other masses. MSK: Full range of motion, no joint swelling or deformity. Normal gait. Skin: Warm, dry, intact. No rashes, lesions, or pallor. Neuro: Alert and oriented x3. Cranial nerves II-XII intact. Strength 5/5 throughout. Sensation intact. Reflexes 2+ symmetric. Normal coordination and gait. Psych: Appropriate mood and affect. Normal judgment and insight. Plan 1. Mild Hepatomegaly - Monitor liver size and function with follow-up ultrasounds and liver function tests. - Address underlying hyperlipidemia to reduce liver fat storage. 2. Hyperlipidemia - Implement lifestyle changes to reduce cholesterol and triglycerides, focusing on dietary modifications. - Referral to a wet pan mixer for further management and education. 3. Microscopic Hematuria - Monitor for any changes or symptoms, with repeat urine analysis as needed. Discussion Notes During the visit, I discussed the patient's laboratory results, highlighting the mild hepatomegaly and hyperlipidemia. We reviewed lifestyle modifications to address these issues, including dietary changes to reduce cholesterol and triglycerides. I emphasized the importance of prevention and referred the patient to a wet pan mixer for further guidance. We also discussed the finding of microscopic hematuria, which is not currently concerning but will be monitored. Patient Instructions - Reduce intake of cheese and soda to help lower cholesterol and triglycerides. - Follow up with the wet pan mixer for nutritional counseling. - Monitor for any urinary symptoms and report if they occur. Medical Decision Making The patient's laboratory results indicate mild hepatomegaly and hyperlipidemia, likely due to dietary habits. My decision to focus on lifestyle modifications rather than medication is based on the patient's age and the potential for improvement through diet. The microscopic hematuria is not concerning at this time, and I will monitor it with future urine analyses. The goal is to reduce cholesterol and triglycerides through dietary changes and prevent further liver enlargement. Total time spent caring for the patient today was 45 minutes. This includes time spent before the visit reviewing the chart, time spent documenting, and time spent reviewing laboratory results, diagnostic imaging, medications, performing a medically necessary evaluation, counseling on diagnoses, care coordination. [facility] Medical History (Updated 11/25/24 @ 09:13 by Geoffrey Avery MD) Hepatomegaly Family History Father No problems noted. Mother No problems noted. Social History Housing: House Alcohol intake: current Alcohol intake frequency: does not drink Patient Tobacco Use Status: Never used Tobacco Substance Use Type: Marijuana service: No Current occupational status: employed Cognitive needs: No Hearing needs: No Vision needs: No Questionnaire PHQ-9 Over the last 2 weeks, how often have you been bothered by any of the following problems? 1. Little interest or pleasure in doing things: not at all 2. Feeling down, depressed, or hopeless: not at all 3. Trouble falling or staying asleep, or sleeping too much: not at all 4. Feeling tired or having little energy: not at all 5. Poor appetite or overeating: not at all 6. Feeling bad about yourself - or that you are a failure or have let yourself or your family down: not at all 7. Trouble concentrating on things, such as reading the newspaper or watching television: not at all 8. Moving or speaking so slowly that other people could have noticed. Or the opposite - being so fidgety or restless that you have been moving around a lot more than usual: not at all 9. Thoughts that you would be better off or of hurting yourself in some way: not at all Total score: 0 Source: Developed by Drs. Juan Arevalo, Yeni Laws, Micah Mendoza and colleagues, with an educational richard from [employer]. Thrive Questionnaire Date Thrive assessed: 11/16/24 I am a: Patient What is your living situation today?: I have a steady place to live Within the past 12 months, did the food you bought not last and you didn't have the money to get more?: Often true Within the past 12 months, did you worry whether your food would run out before you got money to buy more?: I choose not to answer this question Do you have trouble paying for medicines?: No Do you have trouble getting transportation to medical appointments?: No Do you have trouble paying your heating and electricity bill?: No Do you have trouble taking care of your child, family member or friend?: No Are you currently unemployed and looking for a job?: No Are you interested in more education?: No Please select the resources that you would like help with: None Currently or been in a relationship where the following occur: I choose not to answer THRIVE Score: 1 AUDIT C Alcohol Use Questionnaire (AUDIT-C) 1. How often do you have a drink containing alcohol?: 2-4 times a month 2. How many drinks containing alcohol do you have on a typical day when you are drinking?: 3 or 4 3. How often do you have six or more drinks on one occasion?: Less than monthly Total Score: 4 MAKAYLA-7 AMB Questionnaire MAKAYLA-7 Feeling nervous, anxious, or on edge: 0 = Not at all Not being able to stop or control worryin = Not at all Worrying too much about different things: 0 = Not at all Trouble relaxin = Not at all Being so restless that it is hard to sit still: 0 = Not at all Becoming easily annoyed or irritable: 0 = Not at all Feeling afraid as if something awful might happen: 0 = Not at all Total MAKAYLA-7 score (0-4 normal; 5-9 mild; 10-14 moderate; 15-21 severe): 0 Source: Developed by Drs. Juan Arevalo, Yeni Laws, Micah Mendoza and colleagues, with an educational richard from [employer]. Physical exam (Primary Care) Vital Signs: Last Vital Signs Temp 98.2 F 12/15/24 09:44 Pulse 70 12/15/24 09:44 Resp 16 12/15/24 09:44 BP 128/72 12/15/24 09:44 Pulse Ox 99 12/15/24 09:44 Oxygen Delivery Method Room Air 12/15/24 09:44 BMI result Body Mass Index 23.2 Tobacco/Smoking Status: Tobacco use Status Tobacco use date assessed 11/16/24 12/15/24 09:49 Patient Tobacco Use Status Never used Tobacco 12/15/24 09:49 PHQ-9: PHQ-9 Score PHQ-9: Total score 0 12/15/24 09:49 Thrive Assessment: Date of Thrive Assessment Date Thrive assessed 11/16/24 12/15/24 09:49 Currently or been in a relationship where the following occur: I choose not to answer Coding Level of Care Code Est Pt Level 4 (69045) Diagnoses Hepatomegaly R16.0 Hyperlipidemia E78.5 Microscopic hematuria R31.29 Assessment & Plan Assessment & Plan (1) Hepatomegaly: Code(s): R16.0 - Hepatomegaly, not elsewhere classified Category: Medical (2) Hyperlipidemia: Code(s): E78.5 - Hyperlipidemia, unspecified (3) Microscopic hematuria: Code(s): R31.29 - Other microscopic hematuria Plan Orders: Referrals Nurse Navigator Referral E78.5 - Hyperlipidemia, unspecified
--- OUTSIDE RECORDS SUMMARY | 2024-12-15 11:06 | XMS_ITS | Clinical Summary ---
Author Organization [facility] Address [address] [place] [phone] Phone Care Team Providers Care Chief Of Safety And Protection Name Role Phone Ira Bowens NP Primary Care Provider Allergies No known active allergies Medications diclofenac [...] VACCINE (#1) 2024 COVID-19 VACCINE (1 - 2024-2 6 season) 2024 HEPATITIS A VACCINES Aged Out [...] Medical Devices Not on file Insurance OUT [facility] PPO PPO BLUE CROSS OUT OF STATE PPO BLUE CROSS OUT OF STATE PPO BLUE CROSS OUT OF STATE PPO BLUE CROSS OUT OF STATE PPO BLUE CROSS OUT OF STATE PPO BLUE CROSS OUT OF STATE PPO BLUE CROSS OUT OF STATE PPO Care Teams Chief Of Safety And Protection Relationship Specialty Start Date End Date Ira Bowens NP [address] [address] PCP - General Family Medicine 10/31/21 Additional Source Comments The information contained in this document represents components of the legal health record. It is not the complete legal health record.[facility]
== END 2024-12-15 10:08 | disposition home or self-care (01) ==
LOC: HO.HMCFMS 09:42
PROVIDERS: PCP Student in an Organized Health Care Education/Training Program; Visit Provider Student in an Organized Health Care Education/Training Program
DX: R16.0 Hepatomegaly, not elsewhere classified (principal); E78.5 Hyperlipidemia, unspecified; R31.29 Other microscopic hematuria